=== PATIENT | female | born 1945 | race Caucasian/White ===

== ENCOUNTER 2024-06-04 21:39 | Emergency (ER) | payer MEDICARE, BC, SELFPAY ==
[2024-06-04 21:41] VITALS: BP 160/83
[2024-06-04 21:58] LABS: Urine Albumin 1+ (Neg - Trace); Urine Bilirubin Negative (Negative); Urine Character Slightly Cloudy (Clear); Urine Color Amber; Urine Glucose Negative (Negative); Urine Ketone Trace (Negative); Urine Leukocyte 1+ (Negative); Urine Nitrite Positive (Negative); Urine Occult Blood 3+ (Negative); Urine Urobilinogen 1+ (Neg - 1+)
[2024-06-04 22:04] LABS: Urine Red Blood Cell >100 /HPF (0-2)
[2024-06-04 23:44] VITALS: BP 136/68; BMI 31.2
--- NOTE | 2024-06-05 00:24 | ED.GENMED ---
History of Present Illness
General
Chief Complaint: Urinary Symptoms
Source: patient
Exam Limitations: none
Time Seen by Provider: 06/05/24 00:06
History of Present Illness
History of Present Illness:
This is 79 year old female that comes in with c/o possible UTI. States that yesterday and today she has not drank much. States that this morning her urine was dark. States that this afternoon it was even darker and tonight it was real dark. States
that she has no abd pain. Stats that she felt light headed and has urinary pressure but not really any burning. Denies any fever, chills, chest pain, SOB, abd pain, nausea, vomiting, diarrhea, headache.
Past History
Past History
ED Past Medical History: Arrthythmia (PVC's, ), CVA (No residual weakness), GERD, HTN, Hypercholesterolemia, Psychiatric (Anxiety), Other (Back/neck pain, Spinal stenosis, Sleep apnea, Renal calculus, Uterine fibroid, Macular degeneration. Vertigo,
) and Other
ED Past Surgical History: Gynecological (Hysterectomy), Orthopedic (Left knee replacement, Right rotator cuff, Phil. carpal tunnel, right elbow surgery, Lumbar laminectomy), Tonsilectomy and Other (cataracts, )
Social History
Tobacco: Non-smoker ( problem, PVCs, hypertension)
Alcohol: Occasional
Drug: None
Personal:
Living: with family
Family History
Family History: CAD and Other
Review of Systems
Review of Systems
All Other Systems: ROS reviewed and negative except as documented in HPI and ROS
Constitutional: Reports no symptoms; Denies fever or chills
EENT: Reports no symptoms
Respiratory: Reports no symptoms; Denies cough or trouble breathing
Cardiac: Reports no symptoms; Denies chest pain
ABD/GI: Denies abdominal pain, nausea, vomiting or diarrhea
: Reports dark urine and other (Pressure)
Musculoskeletal: Reports no symptoms
Skin: Reports no symptoms
Neurological: Reports other (Lightheaded); Denies dizzy or headache
Psychiatric: Reports no symptoms
Phy Exam
General Physical Exam
General Presentation: well appearing and no apparent distress
General age: appears stated age
General Skin: warm and dry
General Habitus: elderly
General Mental: alert
General Hydration: appears well hydrated
ENT Exam
ENT Exam: TM's normal, pharynx normal and neck supple
Eye Exam
Eye Exam: EOMI
Cardiovascular Exam
Cardiovascular Exam: regular rate/rhythm, no edema and normal peripheral pulses
Pulmonary Exam
Pulmonary Exam: lungs clear, no respiratory distress, no rales, chest non tender, no crackles, no rhonchi, no wheezing and no cough
Gastrointestinal Exam
Gastrointestinal Exam: normal bowel sounds, non tender, soft, no organomegaly, no pulsatile mass and non distended
Musculoskeletal Exam
Musculoskeletal Exam: full ROM and no edema
Skin Exam
Skin Exam: normal color, warm/dry, no rash and no petechia
Psychiatric Exam
Psychiatric Exam: normal mood/affect
Course
Orders/Labs/Results
Orders:
Orders
06/04/24 21:49
Urinalysis Reflex To Culture Urgent
Date Specimen was Collected: 06/04/24
Time Specimen was Collected: 21:46
Urine Microscopic Reflex Cult Urgent
Urine Culture Urgent
JORGE Source: U
Specimen Description:
Date Specimen was Collected: 06/04/24
Time Specimen was Collected: 21:46
06/05/24 00:17
0.9% Sodium Chloride 1000 ml [Nss] 1,000 ml IV BOLUS
06/05/24 00:28
Complete Blood Count/With Diff Urgent
06/05/24 00:29
Comprehensive Metabolic Panel Urgent
06/05/24 01:09
Fosfomycin [Monurol] 3 gm PO ONCE ONE
Abnormal Lab Results
06/04/24 06/05/2424
21:49 00:28 00:29
Absolute Monos (auto) 0.9 H 10^3/uL
(0.1-0.6)
Monocytes % 12.2 H %
(1.7-9.3)
Chloride 110 H mmol/L
(98-107)
BUN 26 H mg/dl
(7-17)
Glucose 107 H mg/dl
(70-99)
Urine Ketones Trace A
(Negative)
Ur Occult Blood Reflex 3+ A
(Negative)
Urine Nitrite (Reflex) Positive A
(Negative)
Leukocyte Esterase Rfl 1+ A
(Negative)
Urine RBC >100 A /HPF
(0-2)
Urine Albumin (Reflex) 1+ A
(Neg - Trace)
06/05/24 00:28
06/05/24 00:29
Urine positive for Nitrite, +1 Leukocytes esterase and >100 RBC's. Unable to see WBC's WILL TREAT AT UTI.
Vital Signs
Initial and Last Documented VS:
Initial Vital Signs
Temp Pulse Resp BP Pulse Ox
98.2 F 79 16 160/83 99
06/04/24 21:41 06/04/24 21:41 06/04/24 21:41 06/04/24 21:41 06/04/24 21:41
Last Documented Vital Signs
Temp Pulse Resp BP Pulse Ox
98.2 F 72 16 136/68 98
06/04/24 21:41 06/05/24 00:00 06/05/24 00:00 06/04/24 23:44 06/05/24 00:00
MDM/Problems Addressed
Differential Diagnosis Includes:
UTI, Dehydration.
MDM/Problems Addressed:
This is a 79 year old female that comes in with c/o dark urine and pressure. states that she thinks she has a UTI.
will check labs, give IV fluids.
Back into see patient. Explained that her blood work shows that she was dehydrated. This is most likely a UTI. Will treat patient for infection. Patient to increase her water intake to 8-8oz glasses daily. Follow up with the family doctor for repeat
urine in 5-7 days. Return with fever, increased bleeding or any other concerns.
Chronic conditions affecting care:
ON Plavix
Acute Exacerbation and/or Progression of Chronic Illness:
On Plavix
*Pulse Oximetry
Patient hypoxic: no
*EKG
Interpreted by ED Provider?: NA
Rate: EKG- N/A
*Shipping Team Leader Interpretation
Rate: Shipping Team Leader- N/A
*Critical Care Note
Total Time (30-74mins, 75-104mins- exclusive of procedures): Not Applicable
ED Attending Note
-
Portions of this chart may have been created with voice recognition software.� Occasional wrong word or��sound alike� substitutions may have occurred due to the inherent limitations of voice recognition software.
Discharge Plan
Departure
Patient Disposition: Home (Routine Discharge)
Date of Disposition: 06/05/24
Time of Disposition: 01:21
Patient with high blood pressure during this ER visit?: Yes
Condition: Good
Covid-19: Not Applicable
Discharge Problem:
UTI (urinary tract infection)
Instructions: Urinary Tract Infection, Adult (DC), BLOOD PRESSURE
Prescriptions:
No Action
multivitamin [One Daily Multivitamin] 1 EACH tablet
1 ea PO DAILY
cholecalciferol (vitamin D3) 1,000 UNIT capsule
50 mcg PO BID
atorvastatin 10 MG tablet
10 mg PO QPM
cetirizine 10 MG tablet
10 mg PO DAILY
cyanocobalamin (vitamin B-12) 1,000 MCG tablet
1,000 mcg PO DAILY
clopidogrel 75 MG tablet
75 mg PO DAILY Qty: 0 0RF
acetaminophen [Tylenol Extra Strength] 500 MG tablet
1,000 mg PO Q6HPRN PRN (Reason: pain)
ascorbic acid (vitamin C) [Vitamin C] 1,000 MG tablet
1,000 mg PO BID
calcium carbonate 500 MG tablet
600 mg PO DAILY
amlodipine 5 mg Tablet
5 mg PO DAILY
lutein-zeaxanthin extract 15-0.7 mg Capsule
1 cap PO DAILY
melatonin 12 mg Tablet
12 mg PO HS
metoprolol succinate [Toprol XL] 50 mg Tablet Extended Release 24 Hr
50 mg PO BID
tramadol 50 mg Tablet
50 mg PO Q6H PRN (Reason: pain)
zinc 50 mg Tablet
50 mg PO DAILY
ergocalciferol (vitamin D2) 1,000 unit Capsule
2,000 unit PO DAILY
escitalopram oxalate [Lexapro] 20 mg Tablet
20 mg PO DAILY
omega-3 acid ethyl esters 1 gram Capsule
2 cap PO BID
Referrals:
Javi Martin MD [Family Provider] - Follow up in 5-7 days
Activity Restrictions/Additional Instructions:
As discussed, your blood work shows that you are dehydrated. Please increase your water intake to 8-8oz glasses daily. You have been treated for a urinary tract infection. This is a one time dose to treat this infection which you have been given
here. Please follow up with the family doctor in the next 5-7 days for repeat urine. IF YOU HAVE FEVER, ABD PAIN, OR YOU HAVE ANY OTHER CONCERNS PLEASE RETURN TO THE EMERGENCY ROOM.
Interventions
Interventions:
*Risk Screen - Suicide Last Done: 06/04/24 21:41
*General Assessment Last Done: 06/04/24 21:41
*Neglect/Abuse Screening Last Done: 06/04/24 21:41
*ED COVID-19 Vaccine History Last Done: 06/04/24 23:44
ED-Female Genitourinary Assessment Last Done: 06/04/24 23:44
Discharge Date and Time
Print Language: SOUTH AFR[place]
[2024-06-05] MEDS: NSS 1000 IV (00:28)
[2024-06-05 00:43] LABS: % Eosinophils 1.6 % (0-6); % Immature Granulocytes 0.1 % (0-0.5); % Lymphocytes 25.6 % (20.5-51.1); % Monocytes 12.2 % (1.7-9.3); % Neutrophils 59.5 % (42.2-75.2); Absolute Basophils 0.1 10^3/uL (0-0.2); Absolute Eosinophils 0.1 10^3/uL (0-0.7); Absolute Lymphocytes 1.8 10^3/uL (1.2-3.4); Absolute Monocytes 0.9 10^3/uL (0.1-0.6); Absolute Neutrophils 4.2 10^3/uL (1.4-6.5); Hematocrit 39.6 % (37.0-47.0); Hemoglobin 13.4 g/dL (12.0-16.0); Mean Corp Hgb Conc. 33.8 g/dL (33.0-37.0); Mean Corpuscular Hgb 28.1 pg (27.0-31.0); Mean Platelet Volume 9.6 fL (7.4-10.4); Nucleated Red Blood Cells % 0 %; Platelet Count 209 10^3/uL (130-400); Red Blood Cell Count 4.77 10^6/uL (4.20-5.40); Red Cell Dist. Width 14.2 % (11.5-14.5)
[2024-06-05 00:54] LABS: ALT (SGPT) 31 U/L (0-35); AST (SGOT) 33 U/L (14-36); Alkaline Phosphatase 72 U/L (38-126); Blood Urea Nitrogen 26 mg/dl (7-17); Calcium 9.3 mg/dl (8.4-10.2); Carbon Dioxide 24 mmol/L (22-30); Chloride 110 mmol/L (98-107); Estimated Creatinine Clearance 48 ml/min; Glucose 107 mg/dl (70-99); Sodium 140 mmol/L (135-145); Total Bilirubin 0.2 mg/dl (0.2-1.3); Total Protein 6.3 g/dl (6.3-8.2)
[2024-06-05] MEDS: MONUROL 3 GM PO (01:17)
[2024-06-05 01:36] VITALS: BP 134/66
== END 2024-06-05 01:37 | disposition home or self-care (01) ==
LOC: EMR 21:39
PROVIDERS: Clinical Nurse Specialist Family Health; Emergency Medicine; EMERGENCY PHYSICIAN Emergency Medicine; FAMILY PHYSICIAN Internal Medicine
DX: N39.0 Urinary tract infection, site not specified (principal); R42 Dizziness and giddiness; E86.0 Dehydration; I10 Essential (primary) hypertension; K21.9 Gastro-esophageal reflux disease without esophagitis; E78.00 Pure hypercholesterolemia, unspecified; F41.9 Anxiety disorder, unspecified; M48.00 Spinal stenosis, site unspecified; G47.30 Sleep apnea, unspecified; H35.30 Unspecified macular degeneration; Z96.652 Presence of left artificial knee joint; Z87.442 Personal history of urinary calculi; Z86.73 Personal history of transient ischemic attack (TIA), and cerebral infarction without residual deficits; Z79.02 Long term (current) use of antithrombotics/antiplatelets
CPT/HCPCS: 99284; 96360; 80053; 81003; 81015; 85025; 87086

== ENCOUNTER 2024-07-18 17:19 | Emergency (ER) | payer MEDICARE, BC, SELFPAY ==
[2024-07-18 17:26] VITALS: BP 180/68
--- NOTE | 2024-07-18 18:27 | ED.MUSCINJ ---
HPI-Injury
General
Chief Complaint: Fall
Source: patient
Exam Limitations: none
Time Seen by Provider: 07/18/24 18:10
Nursing documentation reviewed up to this point in time: agreed with
History of Present Illness-Injury
Is this injury a work related problem?: No
Is pt an associate of [facility]?: No
Initial Injury comments:
Patient tripped and fell walking into daughters house. Denies hitting her head. No LOC. Complains of left lateral chest wall pain, left elbow, bilateral knee pain. Has a small skin tear to right forearm. INjury occured this afternoonn. Brought
to ED by daughter for eval.
Past History
Past History
ED Past Medical History: Arrthythmia (PVC's, ), CVA (No residual weakness), GERD, HTN, Hypercholesterolemia, Psychiatric (Anxiety), Other (Back/neck pain, Spinal stenosis, Sleep apnea, Renal calculus, Uterine fibroid, Macular degeneration. Vertigo,
) and Other
ED Past Surgical History: Gynecological (Hysterectomy), Orthopedic (Left knee replacement, Right rotator cuff, Phil. carpal tunnel, right elbow surgery, Lumbar laminectomy), Tonsilectomy and Other (cataracts, )
Social History
Tobacco: Non-smoker ( problem, PVCs, hypertension)
Alcohol: Occasional
Drug: None
Personal:
Living: with family
Family History
Family History: CAD and Other
Review of Systems
Review of Systems
Allergies reviewed?: Yes
All Other Systems: ROS reviewed and negative except as documented in HPI and ROS
Constitutional: Reports no symptoms
EENT: Reports no symptoms
Respiratory: Reports no symptoms
Cardiac: Reports no symptoms
ABD/GI: Reports no symptoms
: Reports no symptoms
Musculoskeletal: Reports joint pain (pain to left lacteral chest, left elbow, bilateral knees)
Skin: Reports other (small skin tear right forearm)
Neurological: Reports no symptoms
Psychiatric: Reports no symptoms
Musculoskeletal Injury Exam
Musculoskeletal Injury Exam
Left Lateral Chest:
Pain with Movement?: Moderate
Tender to palpation?: Moderate
Soft tissue swelling?: None
External deformity and angulation?: None
Joint effusion?: None
Contusion?: Moderate
Hematoma-local bleeding into tissue?: None
Strain- Sprain- Tear (Connective tissue injury)?: Moderate
Crepitus with movement?: No
Joint instability?: No
Malalignment/deformity?: No
Range of motion: Limited
Distal skin color and temperature: normal-warm & good color
Capillary Refill: normal
Normal distal neurovascular exam?: Yes
Left Elbow:
Pain with Movement?: Moderate
Tender to palpation?: Moderate
Soft tissue swelling?: Moderate
External deformity and angulation?: None
Contusion?: Moderate
Hematoma-local bleeding into tissue?: Moderate
Strain- Sprain- Tear (Connective tissue injury)?: None
Crepitus with movement?: No
Joint instability?: No
Malalignment/deformity?: No
Range of motion: Full
Distal skin color and temperature: normal-warm & good color
Capillary Refill: normal
Normal distal neurovascular exam?: Yes
Bilateral Anterior Knee:
Pain with Movement?: Mild
Tender to palpation?: Moderate
Soft tissue swelling?: Mild
External deformity and angulation?: None
Contusion?: Moderate
Hematoma-local bleeding into tissue?: Mild
Strain- Sprain- Tear (Connective tissue injury)?: None
Crepitus with movement?: No
Joint instability?: No
Malalignment/deformity?: No
Range of motion: Full
Distal skin color and temperature: normal-warm & good color
Capillary Refill: normal
Normal distal neurovascular exam?: Yes
Phy Exam
General Physical Exam
General Presentation: well appearing and mild distress
General age: appears stated age
General Skin: warm and dry
General Habitus: normal
General Mental: alert
General Hydration: appears well hydrated
Gastrointestinal Exam
Gastrointestinal Exam: non tender, soft, no organomegaly, no pulsatile mass, non distended and no cva tenderness
Neurological Exam
Neurological Exam: alert, oriented x3, CN II-XII intact, no motor deficits, no sensory deficits and speech normal
Janette Coma Scale
Eye Opening: Spontaneous
Verbal Response: Oriented
Motor Response: Obeys Commands
GCS Total Score: 15
Musculoskeletal Exam
Musculoskeletal Exam: neuro vasc intact
Skin Exam
Skin Exam: normal color, warm/dry and other (1cm superficial skin tear to right forearm)
Psychiatric Exam
Psychiatric Exam: normal mood/affect
Injury Course
Orders/Labs/Results
Orders:
Orders
07/18/24 18:26
Elbow, 3 view, Left [CR Elbow - Left Min 3 Views ] Urgent
Comment:
Reason For Exam: fall
Knee, Left 4 or More Views [CR Knee - Left 4 Or More View*] Urgent
Comment:
Reason For Exam: fall
Knee, Right 4 or More Views [CR Knee- Right 4 Or More View*] Urgent
Comment:
Reason For Exam: fall
Ribs, Left 3 View W/PA Chest CR [CR Ribs-left 3 Vw W/pa Chest] Urgent
Comment:
Reason For Exam: fall
*Radiology
Radiology exam reviewed: radiology read reviewed
*Pulse Oximetry
Patient hypoxic: no
*Critical Care Note
Total Time (30-74mins, 75-104mins- exclusive of procedures): Not Applicable
ED Attending Note
-
Portions of this chart may have been created with voice recognition software.� Occasional wrong word or��sound alike� substitutions may have occurred due to the inherent limitations of voice recognition software.
Discharge Plan
Departure
Patient Disposition: Home (Routine Discharge)
Date of Disposition: 07/18/24
Time of Disposition: 21:22
Patient with high blood pressure during this ER visit?: No
Condition: Good
Covid-19: Not Applicable
Discharge Problem:
Chest wall contusion, Contusion of knee, Contusion of elbow
Instructions: Wound Care (DC), Contusion (DC), Preventing falls in adults, Using Cold for Pain
Prescriptions:
No Action
multivitamin [One Daily Multivitamin] 1 EACH tablet
1 ea PO DAILY
cholecalciferol (vitamin D3) 1,000 UNIT capsule
50 mcg PO BID
atorvastatin 10 MG tablet
10 mg PO QPM
cetirizine 10 MG tablet
10 mg PO DAILY
cyanocobalamin (vitamin B-12) 1,000 MCG tablet
1,000 mcg PO DAILY
clopidogrel 75 MG tablet
75 mg PO DAILY Qty: 0 0RF
acetaminophen [Tylenol Extra Strength] 500 MG tablet
1,000 mg PO Q6HPRN PRN (Reason: pain)
ascorbic acid (vitamin C) [Vitamin C] 1,000 MG tablet
1,000 mg PO BID
calcium carbonate 500 MG tablet
600 mg PO DAILY
amlodipine 5 mg Tablet
5 mg PO DAILY
lutein-zeaxanthin extract 15-0.7 mg Capsule
1 cap PO DAILY
melatonin 12 mg Tablet
12 mg PO HS
metoprolol succinate [Toprol XL] 50 mg Tablet Extended Release 24 Hr
50 mg PO BID
tramadol 50 mg Tablet
50 mg PO Q6H PRN (Reason: pain)
zinc 50 mg Tablet
50 mg PO DAILY
ergocalciferol (vitamin D2) 1,000 unit Capsule
2,000 unit PO DAILY
escitalopram oxalate [Lexapro] 20 mg Tablet
20 mg PO DAILY
omega-3 acid ethyl esters 1 gram Capsule
2 cap PO BID
Referrals:
Javi Martin MD [Family Provider] - Follow up in 2-3 days
Interventions
Interventions:
*Risk Screen - Suicide Last Done: 07/18/24 17:26
*Neglect/Abuse Screening Last Done: 07/18/24 17:26
ED-Musculoskeletal Assessment Last Done: 07/18/24 19:00
ED- Neurological Assessment Last Done: 07/18/24 19:00
ED-Skin Assessment Last Done: 07/18/24 19:00
Discharge Date and Time
Print Language: FILIPINO
[2024-07-18 21:47] VITALS: BP 185/84
== END 2024-07-18 21:45 | disposition home or self-care (01) ==
LOC: EMR 17:19
PROVIDERS: EMERGENCY PHYSICIAN Emergency Medicine; FAMILY PHYSICIAN Internal Medicine
DX: S20.212A Contusion of left front wall of thorax, initial encounter (principal); S80.02XA Contusion of left knee, initial encounter; S80.01XA Contusion of right knee, initial encounter; S50.02XA Contusion of left elbow, initial encounter; S51.811A Laceration without foreign body of right forearm, initial encounter; W01.0XXA Fall on same level from slipping, tripping and stumbling without subsequent striking against object, initial encounter; E78.00 Pure hypercholesterolemia, unspecified; G47.30 Sleep apnea, unspecified; I10 Essential (primary) hypertension; Z86.73 Personal history of transient ischemic attack (TIA), and cerebral infarction without residual deficits; Z96.652 Presence of left artificial knee joint
CPT/HCPCS: 99284; 71101; 73080; 73564

== ENCOUNTER → 2024-09-29 06:29 | Day surgery (SDC) | payer MEDICARE, BC, SELFPAY | LOC: GI 06:29 | PROVIDERS: ATTENDING PHYSICIAN Internal Medicine Gastroenterology | DX: Z12.11 Encounter for screening for malignant neoplasm of colon (principal); D12.2 Benign neoplasm of ascending colon; K57.30 Diverticulosis of large intestine without perforation or abscess without bleeding; K64.8 Other hemorrhoids; K64.4 Residual hemorrhoidal skin tags; Z86.0100 Personal history of colon polyps, unspecified | CPT/HCPCS: 45380; 88305 ==

== ENCOUNTER 2024-12-14 05:57 | Day surgery (SDC) | payer MEDICARE, BC, SELFPAY ==
[2024-11-22 11:25] LABS: Hematocrit 40.6 % (37.0-47.0); Hemoglobin 13.1 g/dL (12.0-16.0); Mean Corp Hgb Conc. 32.3 g/dL (33.0-37.0); Mean Corpuscular Hgb 27.8 pg (27.0-31.0); Mean Corpuscular Volume 86.2 fL (81.0-99.0); Mean Platelet Volume 9.9 fL (7.4-10.4); Platelet Count 235 10^3/uL (130-400); Red Blood Cell Count 4.71 10^6/uL (4.20-5.40); Red Cell Dist. Width 13.1 % (11.5-14.5); White Blood Cell Count 5.1 10^3/uL (4.8-10.8)
[2024-11-22 12:06] LABS: ALT (SGPT) 26 U/L (0-35); AST (SGOT) 29 U/L (14-36); Albumin 4.3 g/dl (3.5-5.0); Alkaline Phosphatase 73 U/L (38-126); Blood Urea Nitrogen 19 mg/dl (7-17); Calcium 9.1 mg/dl (8.4-10.2); Carbon Dioxide 30 mmol/L (22-30); Chloride 100 mmol/L (98-107); Glucose 90 mg/dl (70-99); Potassium 4.2 mmol/L (3.5-5.1); Sodium 138 mmol/L (135-145); Total Bilirubin 0.4 mg/dl (0.2-1.3); Total Protein 6.7 g/dl (6.3-8.2); eGFR > 60.00
[2024-11-22 12:40] LABS: Glycohemoglobin (HgbA1c) 5.7 % (4.0-5.6)
[2024-11-22 13:29] VITALS: BMI 30.2
--- NOTE | 2024-12-02 13:24 | VNURNOTE ---
Patient is scheduled for an elective R TKA on 12/14/24- she is a same day patient with Dr Cheung. Spoke with patient prior to surgery. Introduced role of [facility] Liaison. Patient reports that she lives with her spouse in [facility].
There are 2 steps to enter.
She has a DVT proph machine, raised toilet seat, cane and rolling walker.
PCP is Dr Javi Martin.
Discussed [facility] joint protocol and post surgical plans.
Reviewed that she will have VN services initially and will then start outpatient PT.
Patient selects [facility] for home care needs and will go to [facility] for outpatient PT. Scheduled for 12/19
Patient is in agreement with plan and states that her daughter will be home with her. Advised to bring RW with her day of surgery. Referral placed in [facility].
Plan: [facility] per [facility] joint protocol 12/14 then outpt PT on 12/19
[2024-12-12 15:50] VITALS: BMI 30.2
[2024-12-14] VITALS (18 sets, daily range): BP systolic 114–157; BP diastolic 58–84; PULSE 55; O2SAT 96
[2024-12-14] MEDS: CELEBREX 200 MG PO (06:27)
[2024-12-14] MEDS: TYLENOL 650 MG PO (06:27)
[2024-12-14] MEDS: BACTROBAN NASAL 1 GRAM NASAL (06:27)
[2024-12-14] MEDS: NORMOSOL-R/PLASMALYTE-A 1000 IV (06:40)
--- NOTE | 2024-12-14 10:36 | SUR.PHASEI ---
vss, sats varying from drops to 85 with sleep and able to recover to 97%, using IS, pulling 1500 - 2000 volumes. Patient agrees to use BIPAP with any rest periods at home. Dr Haywood updated multiple times updated on sats. Visits in pacu - okay for
discharge to [facility]
[2024-12-14] MEDS: ANCEF 5 IV (11:18)
== END 2024-12-14 12:44 | disposition home health service (06) ==
LOC: SDS 05:57
PROVIDERS: ATTENDING PHYSICIAN Orthopaedic Surgery; FAMILY PHYSICIAN Internal Medicine; OTHER PHYSICIAN Physician Assistant Medical; REFERRING PHYSICIAN Internal Medicine Cardiovascular Disease
PROC: 0SRC0J9 Replacement of Right Knee Joint with Synthetic Substitute, Cemented, Open Approach (ICD-10-PCS; 2024-12-14)
DX: M17.11 Unilateral primary osteoarthritis, right knee (principal)
CPT/HCPCS: 27447; 36415; 73560; 80053; 83036; 85027; 87070; 97116; 97162; C1713; C1776

== ENCOUNTER → 2025-03-16 12:54 | Outpatient (REF) | payer MEDICARE, BC, SELFPAY | LOC: HWRCS 12:54 | PROVIDERS: ATTENDING PHYSICIAN Internal Medicine Cardiovascular Disease; FAMILY PHYSICIAN Internal Medicine | DX: R60.0 Localized edema (principal) | CPT/HCPCS: 93306 ==